=== PATIENT | female | born 1960 ===

== ENCOUNTER 2021-03-04 13:50 | Outpatient (CLI) | payer OTHER | END 2021-03-04 13:51 | disposition home or self-care (01) | LOC: NUCLEAR 13:50 | PROVIDERS: ATTEND General Practice | DX: R52 Pain, unspecified (principal); M81.0 Age-related osteoporosis without current pathological fracture ==

== ENCOUNTER 2021-03-09 08:00 | Outpatient (CLI) | payer OTHER | END 2021-03-09 08:30 | disposition home or self-care (01) | LOC: PPH VACUNA 08:00 | DX: Z23 Encounter for immunization (principal) ==

== ENCOUNTER 2021-11-05 09:00 | Outpatient (CLI) | payer OTHER | END 2021-11-05 09:15 | disposition home or self-care (01) | LOC: PPH VACUNA 09:00 | PROVIDERS: ATTEND Emergency Medicine Pediatric Emergency Medicine | DX: Z23 Encounter for immunization (principal) ==